=== PATIENT | male | born 1985 | race African-American/Black ===

== ENCOUNTER 2019-06-17 17:52 | Emergency (ER) | payer OTHER ==
[~2019-06-17] VITALS: Ht 180.3 cm; Wt 71.2 kg
[2019-06-17 18:00] VITALS: Ht 180.3 cm; Wt 71.2 kg
[2019-06-17 19:03] VITALS: BP 118/74
== END 2019-06-17 19:02 | disposition home or self-care (01) ==
LOC: ED 17:52
DX: N34.2 Other urethritis (principal)
CPT/HCPCS: 87491; 87591; J0696

== ENCOUNTER 2020-07-18 10:15 | Emergency (ER) | payer OTHER ==
[~2020-07-18] VITALS: Ht 180.3 cm; Wt 71.2 kg
[2020-07-18 10:20] VITALS: Ht 180.3 cm; Wt 71.2 kg
[2020-07-18 12:36] VITALS: BP 121/76
== END 2020-07-18 12:36 | disposition home or self-care (01) ==
LOC: ED 10:15
DX: R61 Generalized hyperhidrosis (principal); Z11.3 Encounter for screening for infections with a predominantly sexual mode of transmission
CPT/HCPCS: 87491; 87591